=== PATIENT | female | born 1980 | race African-American/Black ===

== ENCOUNTER 2019-02-17 08:14 | Outpatient (CLI) | payer OTHER ==
--- NOTE | 2019-02-17 09:49 | CT ---
CT NECK WITH AND WITHOUT CONTRAST: (parathyroid protocol) DATE: 02/17/2019. HISTORY: A 39-year-old female with hypercalcemia and hyperparathyroidism. TECHNIQUE: IV contrast: 120 mL of Isovue 370. Preconstrast scan, 25 second postcontrast scan, and 65 second postcontrast scan, were all performed f rom approximately 3.5 cm inferior to the javier to the inferior edge of the hard palate. Coronal and sagittal reconstructions. FINDINGS: At the C6 level, within the posterior aspect of the mid pole of the right lobe of the thyroid gland, there is an approximately 1 x 0. X 1.2 cm nodule with less intrinsic iodine compared to the rest of t he thyroid gland (axial images 51 of 93, series 2; 51 of 186, series 3; 51 of 93, series 5; coronal i mage 80 of 180, series 604; sagittal image 80 of 180, series 602). This could either be a thyroid no dule or an intrathyroidal parathyroid nodule. The former is favored. It has mild enhancement. Abutting its posterior surface, there is a nodule measuring 1 x 0.6 x 1 cm which is also of lower den sity compared to the thyroid parenchyma on noncontrast images suggesting little or no intrinsic iodin e content, and enhances moderately, located between the right common carotid artery and the lateral s urface of the uppermost esophagus (axial images 50 of 93, series 2; 50 of 186, series 3; 50 of 93, se allyson 5; coronal image 83 of 180, series 604; sagittal image 84 of 180, series 605). This is a somewh at better candidate for a parathyroid adenoma. IMPRESSION: A moderate candidate for a parathyroid adenoma abutting the posterior surface of the mid pole of the right lobe of the thyroid gland, abutting an intrathyroidal nodule. POS: [facility]
--- NOTE | 2019-02-17 13:35 | NM ---
NUCLEAR MEDICINE PARATHYROID SCINTIGRAM AND SPECT: Date: 02/17/19 HISTORY: 39-year-old female with hyperparathyroidism and hypercalcemia. TECHNIQUE: 25.5 mCi technetium-99m sestamibi injected IV. Planar scintigraphic images of head, neck, and upper c hest obtained in 3 views, immediately, at 1 hour, and [address] SPECT-CT fu kevin. FINDINGS: On the immediate planar scintigraphic images, there is an asymmetrical focus of increased uptake in t he region of the mid pole of the right lobe of the thyroid gland. This persists on the washout 1 hour and 2 hour delayed images. On the SPECT-CT fusion images, the asymmetrically increased uptake corresponds to both the intrathyro idal nodule in the mid pole of the right lobe of the thyroid gland, and the posteriorly abutting extr athyroidal nodule described on the CT report of the same day. IMPRESSION: Both the intrathyroidal nodule and the extrathyroidal nodule at the posterior aspect of the mid pole of the right lobe of the thyroid gland appear to have increased uptake and delayed retention. The pos terior extrathyroidal nodule is now highly suspicious for parathyroid adenoma. The intrathyroidal nod ule may also be an intrathyroidal parathyroid adenoma, perhaps a portion of the extrathyroidal nodule invaginating into the right lobe of the thyroid gland. POS: [facility]
== END 2019-02-17 08:15 | disposition home or self-care (01) ==
LOC: CT 08:14
PROVIDERS: ATTEND Otolaryngology Plastic Surgery within the Head & Neck
DX: E83.52 Hypercalcemia (principal); E04.2 Nontoxic multinodular goiter
CPT/HCPCS: 70492; 78072; A9500